=== PATIENT | male | born 1950 | race Caucasian/White ===

== ENCOUNTER 2023-08-13 07:10 | Day surgery (SDC) | payer MEDICARE ==
[2023-08-12 08:35] VITALS: BMI 24.3
[2023-08-13] MEDS ORDERED: Midazolam HCl 2 mg/2 ml Vial ONE (09:23)
[2023-08-13] MEDS ORDERED: PROPOFOL 20 ML ONE ×2 (09:28→09:53)
[2023-08-13] MEDS ORDERED: Lidocaine 1% PF 5 ML VIAL ONE (09:30)
== END 2023-08-13 10:55 | disposition home or self-care (01) ==
LOC: SDC 07:10
PROVIDERS: ATTEND Internal Medicine Gastroenterology
PROC: 0DJD8ZZ Inspection of Lower Intestinal Tract, Via Natural or Artificial Opening Endoscopic (ICD-10-PCS; principal; 2023-08-13)
DX: K63.5 Polyp of colon (principal); Q43.8 Other specified congenital malformations of intestine; K64.9 Unspecified hemorrhoids; I11.0 Hypertensive heart disease with heart failure; I50.9 Heart failure, unspecified; E11.9 Type 2 diabetes mellitus without complications; E78.5 Hyperlipidemia, unspecified; M19.90 Unspecified osteoarthritis, unspecified site; Z88.2 Allergy status to sulfonamides; Z88.8 Allergy status to other drugs, medicaments and biological substances; Z86.010 Personal history of colon polyps; Z95.810 Presence of automatic (implantable) cardiac defibrillator
CPT/HCPCS: J2250; J2704